=== PATIENT | female | born 1985 | race Caucasian/White ===

== ENCOUNTER 2017-03-09 13:01 | Emergency (ER) | payer SELFPAY ==
[2017-03-09 13:20] VITALS: BP 122/77; PULSE 83; RESP 18; TEMP 98
[2017-03-09] MEDS ORDERED: LACTATED RINGER'S 1000 ML INJ 500 ML IV ONE (13:56)
--- NOTE | 2017-03-09 13:56 | PD ---
HPI Chief Complaint Right flank pain Date Seen: Mar 09, 2017 Time Seen: 13:30 (Edgar Lima MD R1) Travel History International Travel<30 Days: No Contact w/Intl Traveler<30Days: No Known Affected Area: No (Edgar Lima MD R1) History of Present Illness HPI Patient is a 32-year-old at 22 weeks and 3 days who presents with right flank pain. She is visiting here on vacation from [place], where she gets her care. She reports that last week she started having UTI symptoms. She reported these symptoms to her doctor who prescribed Macrobid 100 mm by mouth twice a day. She finished this prescription yesterday. She still complains of persistent right flank pain, 8 out of 10 severity. Her pain is exacerbated by any movement. She reports nausea associated with the pain. She denies any dysuria, vomiting, fever, chills. She does report some constant throbbing heaviness of her urethra. Her urine dipstick showed trace blood but negative leukocyte esterase. She also reports a couple of weeks of burning and itching of her vulva that comes and goes. Para: 2 : 3 (Edgar Lima MD R1) History Past Medical History Medical History: Denies Significant Hx (Edgar Lima MD) Obstetric History Obstetric History Patient is a . She reports that her previous 2 deliveries were full term uncomplicated vaginal deliveries. She does have a history of gestational diabetes in the past , but not in this . (Edgar Lima MD R1) Allergies-Medications (Allergen,Severity, Reaction): Coded Allergies: No Known Allergies (Unverified , 03/09/17) Home Meds Active Scripts Ondansetron (Zofran)4 Mg Tab4 Mg PO Q6HR PRN (NAUSEA OR VOMITING) #30 TAB Ref 0 Prov:Edgar Lima MD 03/09/17 Oxycodone-Acetaminophen (Percocet)5-325 mg Tab1-2 Tab PO Q4H PRN (PAIN) #30 TAB Ref 0 Prov:Edgar Lima MD 03/09/17 Review of Systems General / Constitutional: No: Fever, Weight Gain, Chills, Other Eyes: No: Diploplia, Blurred Vision, Visual changes, Pain, Photophobia HENT: No: Headaches, Vertigo, Lightheadedness Cardiovascular: No: Irregular Rhythm, Chest Pain or Discomfort, Palpitations, Tachycardia, Syncope, Varicosities, Edema, Cyanosis Respiratory: No: Cough, Short of Breath, Other Gastrointestinal: Nausea (associated with pain), No: Vomiting, Diarrhea Genitourinary: Discharge (yellow), No: Dysuria, Decreased Urinary Output, Oliguria Musculoskeletal: Pain (right flank), No: Limited ROM, Weakness, Cramping, Edema (Edgra Lima MD R1) Physical Exam Vital Signs Date Time Temp Pulse Resp B/P Pulse Ox O2 Delivery O2 Flow Rate FiO2 03/09/17 13:20 98.0 83 18 122/77 Narrative GENERAL: Well-nourished, well-developed patient. SKIN: Warm and dry. HEAD: Normocephalic and atraumatic. EYES: No scleral icterus. No injection or drainage. ENT: No nasal drainage noted. Mucous membranes pink. Airway patent. NECK: Supple, trachea midline. No JVD. CARDIOVASCULAR: Regular rate and rhythm without murmurs, gallops, or rubs. RESPIRATORY: Breath sounds equal bilaterally. No accessory muscle use. ABDOMEN/GI: Abdomen soft, non-tender, bowel sounds present, no rebound, no guarding Gravid to 22 weeks size GENITOURINARY: External Genitalia: intact and normal in appearance Cervix: posterior Dilatation: closed Effacement: thick Station: -4 Presentation: vertex Membranes: intact Uterine Contractions: irregular small CTX q1-5min FHT's: in the 140's EXTREMITIES: No cyanosis or edema. BACK: Without obvious deformity. No CVA tenderness. Patient reports discomfort to palpation inferior to right CVA but she does not jump with pounding pressure. NEUROLOGICAL: Awake and alert. Motor and sensory grossly within normal limits. Five out of 5 muscle strength in all muscle groups. Normal speech. (Edgar Lima MD R1) Data Data Vital Signs Reviewed: Yes Orders Vital Signs (Adult) .ON ADMISSION (03/09/17 13:17) ^ Labor Status (03/09/17 13:17) Urinalysis - C+S If Indicated (03/09/17 13:17) ^ Hydration (03/09/17 13:17) Heart (03/09/17 13:17) (Edgar Lima MD R1) MDM Plan Patient is a 32-year-old at 22 weeks and 3 days who presents with right flank pain. She also reports a couple of weeks of burning and itching of her vulva that comes and goes. 1. right flank pain, with negative UA and pain exacerbated by movement. No CVA tenderness or fever. Most likely etiology of back pain is musculoskeletal pain and/or hydronephrosis. UA negative for significant signs of infection; 1 RBC, no blood Tylenol by mouth 1 Monitor vital signs Renal ultrasound showed mild to moderate right hydronephrosis Discharge with prescriptions for Percocet and Zofran 2. contractions Considered FFS in, but gestational age is under 24 weeks UA negative for infection and LR IV bolus Fentanyl 50 g IV 2 Terbutaline subcutaneous heart rate reassuring Monitor labor status Encourage by mouth hydration 3. Vulvar burning and itching PAYAL and wet prep negative for clue cells, trichomoniasis, yeast d/w Dr. Gtz (Edgar Lima MD R1) Diagnosis Diagnosis: Primary Impression: Right flank pain Additional Impressions: Hydronephrosis contractions Ruled Out: labor Disposition: 01 DISCHARGE HOME Condition: Good Scripts Ondansetron (Zofran)4 Mg Tab4 Mg PO Q6HR PRN (NAUSEA OR VOMITING) #30 TAB Ref 0 Prov:Edgar Lima MD R1 03/09/17 Oxycodone-Acetaminophen (Percocet)5-325 mg Tab1-2 Tab PO Q4H PRN (PAIN) #30 TAB Ref 0 Prov:Edgar Lima MD R1 03/09/17 Attestation Pt seen and examined with the resident. Agree with above d/c home with percocet and zofran. (Laquita Gtz MD) Edgar Lima MD R1 Mar 09, 2017 13:56 Laquita Gtz MD Mar 09, 2017 18:37
[2017-03-09] MEDS ORDERED: TERBUTALINE INJ 1 MG/ML AMP ONE (13:58)
[2017-03-09] MEDS ORDERED: ACETAMINOPHEN 325 MG TAB PO ONE (14:00)
[2017-03-09] MEDS ORDERED: TERBUTALINE INJ 1 MG/ML AMP SQ ONE (14:00)
[2017-03-09] MEDS ORDERED: TERBUTALINE INJ 1 MG/ML AMP SQ PRN (14:00)
[2017-03-09 14:37] LABS: BACTERIA, URINE RARE /hpf; BLOOD, URINE NEG (NEG); COMMENT (UR) CULT NOT INDICATED; CULTURE IF INDICATED CULT NOT INDICATED; GLUCOSE,URINE NEG (NEG); KETONE, URINE 10 mg/dL (NEG); MUCUS URINE FEW /lpf (OCC); NITRITE,URINE NEG (NEG); PH, URINE 6.5 (5.0-8.5); SQUAMOUS EPITHELIAL CELL URINE 6 /hpf (0-5); URINE COLOR DARK-YELLOW (YELLW/STRAW)
--- NOTE | 2017-03-09 16:33 | RADRPT ---
EXAM DATE/TIME: 03/09/2017 15:59 [facility] COMPARISON: No previous studies available for comparison. INDICATIONS : Right flank pain. MEDICAL HISTORY : . SURGICAL HISTORY : None. ENCOUNTER: Subsequent ACUITY: 1 day PAIN SCORE: 9/10 LOCATION: Bilateral flank MEASUREMENTS: RIGHT KIDNEY: 11.4 x 7.2 x 7.2 cm LEFT KIDNEY: 9.7 x 5.1 x 6.4 cm FINDINGS: RIGHT KIDNEY: Renal cortex is normal in thickness and echotexture. No stone or mass. There is mild to moderate hyd ronephrosis. LEFT KIDNEY: Renal cortex is normal in thickness and echotexture. No hydronephrosis, stone, or mass. BLADDER: Decompressed and not visualized. CONCLUSION: 1. Mild to moderate right hydronephrosis of uncertain etiology. Since the patient is this co uld represent hydronephrosis associated with the gravid uterus compressing the right ureter. No renal stones visualized. 2. Left kidney is normal and urinary bladder is decompressed and not evaluated. Reji Hernández MD on March 09, 2017 at 16:30 Board Certified Radiologist. This report was verified electronically.
[2017-03-09] MEDS ORDERED: oxyCODONE/ACETAMINOPHEN 5 MG/325 MG TAB PO ONE (17:30)
[2017-03-09] MEDS ORDERED: ZOFR4TAB PO (17:32)
[2017-03-09] MEDS ORDERED: PERC5TAB12 PO (17:32)
== END 2017-03-09 19:03 | disposition home or self-care (01) ==
LOC: HOBED 13:01
DX: O26.892 Other specified pregnancy related conditions, second trimester (principal); N13.30 Unspecified hydronephrosis; O47.02 False labor before 37 completed weeks of gestation, second trimester; Z3A.22 22 weeks gestation of pregnancy
CPT/HCPCS: 76775; 81001; 87210; 96372; 96374; 96376; 99285; J3010; J7120; J3105